=== PATIENT | male | born 1995 | race Two or more races ===

== ENCOUNTER 2021-01-08 20:27 | Emergency (ER) | payer BC, OTHER ==
[~2021-01-08] VITALS: Ht 180.3 cm; Wt 110.3 kg
[~2021-01-08 20:27] MED LIST: DIPH25CA61 PO; HYDR28CR TP
--- NOTE | 2021-01-08 20:49 | NUR ---
Pt arrived to room 25. RN at bedside, provider at bedside, hooked up to monitor. Pt denies chest pain but reports he does experience SOB with his episodes of palpitations which are usually brought on by activity. Pt states this has been ongoing for about 1 month. HR currently 148, sinus tach. Pt reports he has hx of anxiety.
[2021-01-08] MEDS ORDERED: METOPROLOL 1 MG/ML, 5ML IVPush ONE (21:00)
[2021-01-08 21:16] LABS: BASOPHILS % (AUTO) 1 % (0-1); EOSINOPHILS % (AUTO) 1 % (1-7); LYMPHOCYTES % (AUTO) 20 % (22-44); MEAN CORPUSCULAR HEMOGLOBIN 28.4 pg (27.5-34.5); MEAN CORPUSCULAR HGB CONC 33.8 g/dL (33.2-36.2); MEAN PLATELET VOLUME 10.5 fL (7.4-10.4); MONOCYTES % (AUTO) 7 % (2-9); NEUTROPHILS % (AUTO) 72 % (42-75); PLATELET COUNT 171 x10^3/uL (130-400); RED CELL DISTRIBUTION WIDTH 13.9 % (9.4-14.8)
--- NOTE | 2021-01-08 21:17 | NUR ---
When doctor was in the room, pt's HR got up to 150. After the doctor left, this movie critic with pt, pt conversing with nurse discussing his feelings of anxiety. During this time pt got more comfortable and HR went down to 110.
--- NOTE | 2021-01-08 21:17 | NUR ---
IV inserted, labs drawn, XR done.
[2021-01-08 21:18] LABS: MD NO
--- NOTE | 2021-01-08 21:18 | NUR ---
Metoprolol ordered but HR now 110 and pt reports he would like to "just try to relax before taking the med". Informed david Castelan.
[2021-01-08 21:27] LABS: ALANINE AMINOTRANSFERASE 20 U/L (12-78); ALBUMIN 4.1 g/dL (3.4-5.0); ANION GAP 8 mmol/L (5-15); CALCIUM 8.7 mg/dL (8.5-10.1); CHLORIDE 107 mmol/L (98-107)
[2021-01-08 21:32] LABS: ALKALINE PHOSPHATASE 119 U/L (45-117); BILIRUBIN,TOTAL 0.2 mg/dL (0.2-1.0); CREATININE 0.94 mg/dL (0.7-1.3); TOTAL PROTEIN 8.8 g/dL (6.4-8.2); TROPONIN I < 0.015 ng/mL (0.000-0.045)
[2021-01-08 22:45] VITALS: BP 117/82
--- NOTE | 2021-01-08 22:55 | NUR ---
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 Metoprolol was not give. IV removed, catheter intact, hemostasis achieved, dressing applied. Pt agrees with and understands discharge plan and instructions.
== END 2021-01-08 22:58 | disposition home or self-care (01) ==
LOC: ED 21:24
DX: R00.2 Palpitations (principal); R00.0 Tachycardia, unspecified; R06.00 Dyspnea, unspecified; F41.9 Anxiety disorder, unspecified
CPT/HCPCS: 36415; 71045; 80053; 83735; 84443; 84484; 85025; 85379; 93005; 99285